=== PATIENT | female | born 1970 | race Hispanic/Latino ===

== ENCOUNTER 2018-01-01 17:09 | Emergency (ER) | payer OTHER ==
[2018-01-01] MEDS ORDERED: NA CHLORIDE 0.9% 1,000 ML ONE ×2 (17:57→18:49)
[2018-01-01] MEDS ORDERED: ONDANSETRON 4 MG/2 ML VIAL ONE (18:12)
[2018-01-01 18:16] LABS: Absolute Lymphocytes (CBC) 0.9 K/uL (0.7-4.9); Absolute Monocytes 0.3 K/uL (0.1-1.3); Absolute Neutrophil 10.6 K/uL (1.8-8.0); Basophils % 0.4 % (0-1.3); Eosinophils % 0.1 % (0-4.4); Lymphocytes % 7.2 % (15.3-44.8); MCH 29.3 pg (27.0-35.0); MCV 87.3 fL (80-100); MPV 10.1 fL (7.6-11.3); Monocytes % 2.2 % (3.3-12.3); RBC Red Blood Cell Count 4.69 M/uL (3.86-4.86)
--- NOTE | 2018-01-01 18:39 | RAD REPORT ---
EXAM DESCRIPTION: RAD - Chest Single View - 01/01/2018 6:24 pm CLINICAL HISTORY: COUGH Chest pain. COMPARISON: No comparisons FINDINGS: Portable technique limits examination quality. The lungs are grossly clear. The heart is normal in size. No displaced fractures. IMPRESSION: No acute intrathoracic process suspected.
[2018-01-01 18:49] LABS: ALT/SGPT 32 U/L (12-78); AST/SGOT 19 U/L (15-37); Albumin 3.9 g/dL (3.4-5.0); Alkaline Phosphatase 61 U/L (45-117); BUN Blood Urea Nitrogen 14 mg/dL (7-18); Bicarbonate 27 mmol/L (21-32); Bilirubin Direct < 0.1 mg/dL (0-0.2); Bilirubin Total 0.3 mg/dL (0.2-1.0); CKMB Creatine Kinase MB < 1.0 ng/mL (0.3-3.6); Creatine Phosphokinase 85 U/L (26-192); Glucose Level 123 mg/dL (74-106); Lipase 105 U/L (73-393); Magnesium 1.9 mg/dL (1.8-2.4); NT PRO-BNP 37 pg/mL (<125); Potassium 3.6 mmol/L (3.5-5.1); Protein, Total 7.9 g/dL (6.4-8.2); Sodium Level 136 mmol/L (136-145)
[2018-01-01] MEDS ORDERED: MECLIZINE HCL 12.5 MG TAB ONE (18:49)
[2018-01-01] MEDS ORDERED: FAMOTIDINE 20 MG/2 ML VIAL IV ONE (18:49)
--- NOTE | 2018-01-01 19:07 | EDPHYS ---
Physician Documentation [facility] Name: Delia Albright Age: 47 yrs Sex: Female : 1970 Arrival Date: 01/01/2018 Time: 17:13 Bed 25 Private MD: None, None ED Physician Kwadwo Liriano HPI: 01/01 18:35 This 47 yrs old Female presents to ER via Ambulatory with complaints of stalin Weakness, Nausea/Vomiting/Diarrhea. Historical: - Allergies: 17:26 PENICILLINS; ss - Home Meds: 17:26 None [Active]; ss - PMHx: 17:26 None; ss - PSHx: 17:26 Knee surgery; ss - Immunization history:: Adult Immunizations up to date. - Social history:: Smoking status: Patient/guardian denies using tobacco. - Ebola Screening: : Patient denies exposure to infectious person Patient denies travel to an Ebola-affected area in the 21 days before illness onset. ROS: 18:35 Constitutional: Negative for fever, chills, and weight loss, Eyes: Negative for injury, stalin pain, redness, and discharge, ENT: Negative for injury, pain, and discharge, Neck: Negative for injury, pain, and swelling, Cardiovascular: Negative for chest pain, palpitations, and edema, Respiratory: Negative for shortness of breath, cough, wheezing, and pleuritic chest pain, Back: Negative for injury and pain, : Negative for injury, bleeding, discharge, and swelling, MS/Extremity: Negative for injury and deformity, Skin: Negative for injury, rash, and discoloration, Psych: Negative for depression, anxiety, suicide ideation, homicidal ideation, and hallucinations, Allergy/Immunology: Negative for hives, rash, and allergies, Endocrine: Negative for neck swelling, polydipsia, polyuria, polyphagia, and marked weight changes, Hematologic/Lymphatic: Negative for swollen nodes, abnormal bleeding, and unusual bruising. 18:35 Abdomen/GI: Positive for nausea and vomiting, diarrhea. 18:35 Neuro: Positive for dizziness, weakness. Exam: 18:35 Constitutional: This is a well developed, well nourished patient who is awake, alert, stalin and in no acute distress. Head/Face: Normocephalic, atraumatic. Eyes: Pupils equal round and reactive to light, extra-ocular motions intact. Lids and lashes normal. Conjunctiva and sclera are non-icteric and not injected. Cornea within normal limits. Periorbital areas with no swelling, redness, or edema. ENT: Nares patent. No nasal discharge, no septal abnormalities noted. Tympanic membranes are normal and external auditory canals are clear. Oropharynx with no redness, swelling, or masses, exudates, or evidence of obstruction, uvula midline. Mucous membranes moist. Neck: Trachea midline, no thyromegaly or masses palpated, and no cervical lymphadenopathy. Supple, full range of motion without nuchal rigidity, or vertebral point tenderness. No Meningismus. Chest/axilla: Normal chest wall appearance and motion. Nontender with no deformity. No lesions are appreciated. Cardiovascular: Regular rate and rhythm with a normal S1 and S2. No gallops, murmurs, or rubs. Normal PMI, no JVD. No pulse deficits. Respiratory: Lungs have equal breath sounds bilaterally, clear to auscultation and percussion. No rales, rhonchi or wheezes noted. No increased work of breathing, no retractions or nasal flaring. Back: No spinal tenderness. No costovertebral tenderness. Full range of motion. Female : Normal external genitalia. Skin: Warm, dry with normal turgor. Normal color with no rashes, no lesions, and no evidence of cellulitis. MS/ Extremity: Pulses equal, no cyanosis. Neurovascular intact. Full, normal range of motion. Neuro: Awake and alert, GCS 15, oriented to person, place, time, and situation. Cranial nerves II-XII grossly intact. Motor strength 5/5 in all extremities. Sensory grossly intact. Cerebellar exam normal. Normal gait. Psych: Awake, alert, with orientation to person, place and time. Behavior, mood, and affect are within normal limits. 18:35 Abdomen/GI: Inspection: abdomen appears normal, Bowel sounds: normal, Palpation: nontender, Liver: no appreciated palpable abnormalities, Hernia: not appreciated. 19:06 Neuro: Orientation: is normal, appropriate for stated age, no acute changes, Mentation: stalin is normal, appropriate for stated age, no acute changes, Memory: is normal, appropriate for stated age, no acute changes, Cranial nerves: grossly normal, is grossly normal based on the patient's age, no acute changes, Cerebellar function: is grossly normal, is grossly normal based on the patient's age, no acute changes, Motor: is grossly normal based on the patient's age, no acute changes, moves all fours, Sensation: no obvious gross deficits, appropriate no acute changes, Gait: is steady, appropriate for age, Deep tendon reflexes are 2+ (normal) in the bilateral brachioradialis, bicep, tricep and patellar and Achilles tendons, Babinski testing is normal, seizure activity, is not displayed by the patient. Vital Signs: 17:26 BP 138 / 86; Pulse 75; Resp 17; Pulse Ox 99% on R/A; Height 5 ft. 2 in. (157.48 cm); ss Pain 0/10; 17:30 Temp 97.7(TE); ss 18:25 BP 109 / 78; Pulse 89; Resp 16; Pulse Ox 100% on R/A; hb 19:17 BP 105 / 78; Pulse 76; Resp 18; Temp 98.5; Pulse Ox 99% on R/A; aj MDM: 17:28 Patient medically screened. [facility] 18:37 Data reviewed: vital signs, nurses notes, lab test result(s), EKG, radiologic studies, [facility] plain films. 01/01 17:41 Order name: Basic Metabolic Panel; Complete Time: 19:06 [facility] 01/01 17:41 Order name: CBC with Diff [facility] 01/01 17:41 Order name: Ckmb; Complete Time: 19:06 [facility] 01/01 17:41 Order name: CPK; Complete Time: 19:06 [facility] 01/01 17:41 Order name: LFT's; Complete Time: 19:06 [facility] 01/01 17:41 Order name: Magnesium; Complete Time: 19:06 [facility] 01/01 17:41 Order name: NT PRO-BNP; Complete Time: 19:06 [facility] 01/01 17:41 Order name: PT-INR [facility] 01/01 17:41 Order name: Ptt, Activated [facility] 01/01 17:41 Order name: Troponin (emerg Dept Use Only); Complete Time: 19:06 [facility] 01/01 17:41 Order name: Lipase; Complete Time: 19:06 [facility] 01/01 17:41 Order name: Urine Test (obtain specimen); Complete Time: 18:55 [facility] 01/01 17:41 Order name: XRAY Chest (1 view); Complete Time: 19:06 [facility] 01/01 17:41 Order name: EKG; Complete Time: 17:42 [facility] 01/01 17:41 Order name: Cardiac monitoring; Complete Time: 18:14 [facility] 01/01 17:41 Order name: EKG - Nurse/Tech; Complete Time: 18:14 [facility] 01/01 17:41 Order name: IV Saline Lock; Complete Time: 18:14 [facility] 01/01 17:41 Order name: Labs collected and sent; Complete Time: 18:14 [facility] 01/01 17:41 Order name: O2 Per Protocol; Complete Time: 18:14 [facility] 01/01 18:48 Order name: Urine Dipstick--Ancillary (enter results) 01/01 18:48 Order name: Urine --Ancillary (enter results) 01/01 17:41 Order name: O2 Sat Monitoring; Complete Time: 18:14 [facility] 01/01 17:41 Order name: Urine Dipstick-Ancillary (obtain specimen); Complete Time: 19:11 [facility] 01/01 18:41 Order name: Labs - recollect needed; Complete Time: 19:08 bd Administered Medications: 18:13 Drug: NS 0.9% 1000 ml Route: IV; Rate: 1 bolus; Site: left antecubital; hb 19:21 Follow up: Response: No adverse reaction; IV Status: Order to discontinue infusion; IV aj Intake: 100ml 18:13 Drug: Zofran 4 mg Route: IVP; Site: left antecubital; hb 18:54 Follow up: Response: No adverse reaction hb 18:54 Drug: Meclizine 50 mg Route: PO; hb 19:21 Follow up: Response: No adverse reaction aj 18:54 Drug: NS 0.9% 1000 ml Route: IV; Rate: 1 bolus; Site: left antecubital; hb 19:20 Follow up: Response: No adverse reaction; IV Status: Completed infusion; IV Intake: aj 1000ml 18:54 Drug: Pepcid 20 mg Route: IVP; Site: left antecubital; hb 19:20 Follow up: Response: No adverse reaction Point of Care Testing: Blood Glucose: 17:36 Blood Glucose: 119 mg/dL; ss Ranges: Critical Glucose Levels:Adult <50 mg/dl or >400 mg/dl <40 mg/dl or >180 mg/dl Disposition: 01/01/18 19:07 Discharged to Home. Impression: Vomiting, Diarrhea, unspecified, Vertiginous syndromes in diseases classified elsewhere, unspecified ear, Weakness. - Condition is Stable. - Discharge Instructions: Food Choices to Help Relieve Diarrhea, Adult, Diarrhea, Nausea and Vomiting, Vertigo, Weakness, Nausea and Vomiting, Xtzv-[id number]-Nmkz, Diarrhea, Afam-lf-Bmsh, Vertigo, Essj-ts-Wcsl, Weakness, Ulma-wv-Mfle. - Prescriptions for Meclizine 25 mg Oral Tablet - take 1 tablet by ORAL route every 8 hours As needed; 30 tablet. Pepcid 20 mg Oral Tablet - take 1 tablet by ORAL route every 12 hours for 10 days; 20 tablet. Zofran 4 mg Oral Tablet - take 1 tablet by ORAL route every 12 hours As needed; 20 tablet. - Medication Reconciliation Form, Thank You Letter, Antibiotic Education, Prescription Opioid Use form. - Follow up: Private Physician; When: 2 - 3 days; Reason: Recheck today's complaints, Continuance of care, Re-evaluation by your physician. - Problem is new. - Symptoms have improved. Signatures: Dispatcher [employer] [facility] Kassie Douglass Amanda, AARTI RN Kwadwo Jimenez MD MD cha Smirch, Shelby, RN RN ss Baxter, Heather, RN RN Corrections: (The following items were deleted from the chart) 17:43 17:42 Occult Blood+PA.LAB.BRZ ordered. [facility] EDVA 19:22 19:07 01/01/2018 19:07 Discharged to Home. Impression: Vomiting; Diarrhea, unspecified; aj Vertiginous syndromes in diseases classified elsewhere, unspecified ear; Weakness. Condition is Stable. Discharge Instructions: Food Choices to Help Relieve Diarrhea, Adult, Diarrhea, Nausea and Vomiting, Vertigo, Weakness, Nausea and Vomiting, Ssfr-fn-Vucg, Diarrhea, Bprv-zo-Rtrs, Vertigo, Jhkd-jz-Axug, Weakness, Khbf-cy-Jwdn. Prescriptions for Meclizine 25 mg Oral Tablet - take 1 tablet by ORAL route every 8 hours As needed; 30 tablet, Pepcid 20 mg Oral Tablet - take 1 tablet by ORAL route every 12 hours for 10 days; 20 tablet, Zofran 4 mg Oral Tablet - take 1 tablet by ORAL route every 12 hours As needed; 20 tablet. and Forms are Medication Reconciliation Form, Thank You Letter, Antibiotic Education, Prescription Opioid Use. Follow up: Private Physician; When: 2 - 3 days; Reason: Recheck today's complaints, Continuance of care, Re-evaluation by your physician. Problem is new. Symptoms have improved. stalin
--- NOTE | 2018-01-01 19:07 | ER ---
Nurse's Notes [facility] Name: Delia Albright Age: 47 yrs Sex: Female : 1970 Arrival Date: 01/01/2018 Time: 17:13 Bed 25 Private MD: None, None Diagnosis: Vomiting;Diarrhea, unspecified;Vertiginous syndromes in diseases classified elsewhere, unspecified ear;Weakness Presentation: 01/01 17:24 Presenting complaint: Patient states: dizziness, nausea, vomiting x1, diarrhea x2, ss chills that began 5.5 hours ago. Pt reports she feels as if the room is spinning when she moves her head. Transition of care: patient was not received from another setting of care. Onset of symptoms was January 01, 2018 at 12:00. Risk Assessment: Do you want to hurt yourself or someone else? Patient reports no desire to harm self or others. Initial Sepsis Screen: Does the patient meet any 2 criteria? No. Patient's initial sepsis screen is negative. Does the patient have a suspected source of infection? No. Patient's initial sepsis screen is negative. Care prior to arrival: None. 17:24 Method Of Arrival: Ambulatory ss 17:24 Acuity: JELANI 3 ss Historical: - Allergies: 17:26 PENICILLINS; ss - Home Meds: 17:26 None [Active]; ss - PMHx: 17:26 None; ss - PSHx: 17:26 Knee surgery; ss - Immunization history:: Adult Immunizations up to date. - Social history:: Smoking status: Patient/guardian denies using tobacco. - Ebola Screening: : Patient denies exposure to infectious person Patient denies travel to an Ebola-affected area in the 21 days before illness onset. Screenin:14 Abuse screen: Denies threats or abuse. Denies injuries from another. Nutritional hb screening: No deficits noted. Tuberculosis screening: No symptoms or risk factors identified. Fall Risk None identified. Assessment: 17:30 General: Appears in no apparent distress. Behavior is calm, cooperative. Pain: Denies hb pain. Neuro: Level of Consciousness is awake, alert, obeys commands, Oriented to person, place, time, situation. Cardiovascular: Heart tones S1 S2 present Capillary refill < 3 seconds Patient's skin is warm and dry. Respiratory: Airway is patent Trachea midline Respiratory effort is even, unlabored, Respiratory pattern is regular, symmetrical, Breath sounds are clear bilaterally. GI: Abdomen is non-distended, Bowel sounds present X 4 quads. Abd is soft and non tender X 4 quads. Reports diarrhea, nausea, vomiting. : No signs and/or symptoms were reported regarding the genitourinary system. EENT: No signs and/or symptoms were reported regarding the EENT system. Derm: No signs and/or symptoms reported regarding the dermatologic system. Skin is intact, is healthy with good turgor, Skin is pink, warm \T\ dry. Musculoskeletal: No signs and/or symptoms reported regarding the musculoskeletal system. 18:25 Reassessment: Patient appears in no apparent distress at this time. No changes from hb previously documented assessment. Patient and/or family updated on plan of care and expected duration. Pain level reassessed. Patient is alert, oriented x 3, equal unlabored respirations, skin warm/dry/pink. Vital Signs: 17:26 BP 138 / 86; Pulse 75; Resp 17; Pulse Ox 99% on R/A; Height 5 ft. 2 in. (157.48 cm); ss Pain 0/10; 17:30 Temp 97.7(TE); ss 18:25 BP 109 / 78; Pulse 89; Resp 16; Pulse Ox 100% on R/A; hb 19:17 BP 105 / 78; Pulse 76; Resp 18; Temp 98.5; Pulse Ox 99% on R/A; aj ED Course: 17:13 Patient arrived in ED. sb2 17:13 None, None is Private Physician. sb2 17:21 Kay Phillips, RN is Primary Nurse. hb 17:25 Triage completed. ss 17:26 Arm band placed on right wrist. ss 17:28 Kwadwo Liriano MD is Attending Physician. stalin 17:36 Inserted saline lock: 20 gauge in left antecubital area, using aseptic technique. Blood ss collected. Patient maintains SpO2 saturation greater than 95% on room air. 17:45 Patient has correct armband on for positive identification. Placed in gown. Bed in low hb position. Call light in reach. Side rails up X 1. 17:58 EKG done, by loader technician. reviewed by Kwadwo Liriano MD. sm3 18:23 X-ray completed. Portable x-ray completed in exam room. Patient tolerated procedure kc2 well. 18:24 XRAY Chest (1 view) In Process Unspecified. EDMS 19:17 No provider procedures requiring assistance completed. IV discontinued, bleeding aj controlled, No redness/swelling at site. Pressure dressing applied. Administered Medications: 18:13 Drug: NS 0.9% 1000 ml Route: IV; Rate: 1 bolus; Site: left antecubital; hb 19:21 Follow up: Response: No adverse reaction; IV Status: Order to discontinue infusion; IV aj Intake: 100ml 18:13 Drug: Zofran 4 mg Route: IVP; Site: left antecubital; hb 18:54 Follow up: Response: No adverse reaction hb 18:54 Drug: Meclizine 50 mg Route: PO; hb 19:21 Follow up: Response: No adverse reaction aj 18:54 Drug: NS 0.9% 1000 ml Route: IV; Rate: 1 bolus; Site: left antecubital; hb 19:20 Follow up: Response: No adverse reaction; IV Status: Completed infusion; IV Intake: aj 1000ml 18:54 Drug: Pepcid 20 mg Route: IVP; Site: left antecubital; hb 19:20 Follow up: Response: No adverse reaction Point of Care Testing: Blood Glucose: 17:36 Blood Glucose: 119 mg/dL; ss Ranges: Intake: 19:20 IV: 1000ml; Total: 1000ml. aj 19:21 IV: 100ml; Total: 1100ml. aj Outcome: 19:07 Discharge ordered by . stalin 19:17 Discharged to home ambulatory, with family. aj 19:17 Condition: good 19:17 Discharge instructions given to patient, Instructed on discharge instructions, follow up and referral plans. medication usage, Demonstrated understanding of instructions, follow-up care, medications, Prescriptions given X 3. 19:22 Patient left the ED. aj Signatures: Dispatcher [employer] EDJulienne Cordova RN RN aj Anderson, Corey, MD MD cha Smirch, Shelby, RN RN Kay Phillips RN RN hb Carr, Kelsie kc2 Kalpana Souza sb2 Rowan Ambriz 3
[2018-01-01 19:45] LABS: Protime INR 1.01
[2018-01-01 20:32] LABS: Blood Morphology Comment NOT SEEN (NOT SEEN); Platelet Estimate ADEQ
--- NOTE | 2018-01-01 20:52 | EKG ---
Test Date: 2018-01-01 Test Time: 17:52:14 Switcher: FREDI MEASUREMENT RESULTS: Intervals: Rate: 70 LA: 170 QRSD: 90 QT: 422 QTc: 455 [place]: P: 31 LA: 170 QRS: 7 T: 35 INTERPRETIVE STATEMENTS: Normal sinus rhythm Normal ECG No previous ECG available for comparison Electronically Signed On 01-01-18 20:51:37 CDT by Kayden Vinosn
[2018-01-01 22:17] LABS: Urine Blood 2+ (NEG); Urine Glucose NEGATIVE (NEG); Urine Protein 2+ (NEG); Urine pH 8.5 (5.0-7.0)
== END 2018-01-01 19:22 | disposition home or self-care (01) ==
LOC: ER 17:09
DX: R11.10 Vomiting, unspecified (principal); R19.7 Diarrhea, unspecified; H82.9 Vertiginous syndromes in diseases classified elsewhere, unspecified ear; R53.1 Weakness; Z88.0 Allergy status to penicillin
CPT/HCPCS: 36415; 71045; 80048; 80076; 81003; 81025; 82550; 82553; 82962; 83690; 83735; 83880; 84484; 85025; 85610; 85730; 93005; 96361; 96374; 96375; 99284; J2405; J7030

== ENCOUNTER 2020-01-15 09:33 | Emergency (ER) | payer OTHER ==
--- OUTSIDE RECORDS SUMMARY | 2020-01-15 10:03 | XMS REPORT | Clinical Summary ---
:1970 Author Organization [facility] Address [address] [place] [address] Care Team Providers Name Role Phone Asked, Pcp Primary Care Provider Unavailable Allergies Active Allergy Reactions Severity Noted Date Comments Penicillins Rash Low 08/19/2019 Medications Medication Sig Dispensed Refills Start Date End Date Status meloxicam (MOBIC) Take 1 tablet 30 tablet 11 08/29/2019 02 Active 15 mg tablet (15 mg total) 1 by mouth daily. moxifloxacin 0 08/15/2019 Discon tinued (VIGAMOX) 0.5 % 0 (The rapy ophthalmic completed ) solution clindamycin Take 1 6 capsule 0 09/09/2019 (Cleocin HCL) 300 capsule (300 0 MG capsule mg total) by mouth 3 (three) times a day for 2 days. promethazine Take 1 tablet 20 tablet 0 09/09/2019 Ex pired (PHENERGAN) 25 MG (25 mg total) 0 tablet by mouth every 6 (six) hours as needed for nausea or vomiting for up to 30 days. To begin after surgery Active Problems Problem Noted Date Loose body of right knee 09/02/2019 Overview: Added automatically from request for danna lizzie [id number] Encounters Date Type Specialty Care Team Description 12/05/2019 Travel 12/03/2019 Travel 11/28/2019 Travel 11/26/2019 Travel 11/21/2019 Travel 11/19/2019 Travel 11/14/2019 Travel 11/12/2019 Travel 11/07/2019 Travel 10/29/2019 Travel 10/21/2019 Travel 10/16/2019 Telephone Orthopedic Surgery Kerri Ramirez MA 09/26/2019 Office Visit Orthopedic Surgery Joseph Gu body of right LENNY Lee knee (Primary Dx) Ned Recinos MD 09/26/2019 Travel 09/23/2019 Telephone Orthopedic Surgery Mynor Kaitlin [place] 09/13/2019 Anesthesia Event General Surgery Jorge Lugo MD Cheema, Ivelisse, FNP 09/13/2019 Surgery General Surgery Ned Recinos, Right Ar throscopy MD of the Knee wit h Removal of Loos e Body 09/13/2019 Hospital Encounter General Surgery Ned Recinos MD 09/10/2019 Documentation Orthopedic Surgery Elza Maradiaga DME (SX 09/13/2019) 09/10/2019 Orders Only Orthopedic Surgery Elza Maradiaga Loose bod y of right knee (Primary D x) 09/09/2019 Orders Only Orthopedic Surgery Joseph Gu PA 09/02/2019 Telephone Orthopedic Surgery Alfonzo Chong MA 09/02/2019 Telephone Orthopedic Surgery Alfonzo Chong MA 09/02/2019 Transcribe Orders Orthopedic Surgery Ned Recinos, Loose body of right MD knee (Primary D x) 08/29/2019 Refill Orthopedic Surgery MynorKaitlin [place] 08/27/2019 Office Visit Orthopedic Surgery Ned Recinos, Loose body of right MD knee (Primary D x) 08/22/2019 Hospital Encounter Radiology Ned Recinos, Tear of medial MD meniscus of rig ht knee, current, unspecified tea r type, initial encounter 08/19/2019 Office Visit Orthopedic Surgery Ned Recinos, Tear of medial meniscus of right knee, current, unspecified tear type, initial encounter (Primary Dx); Chronic pain of both knees after 01/14/2019 Family History Medical History Relation Name Comments No Known Problems Father No Known Problems Mother Relation Name Status Comments Father Mother Other siblings Alive Other children Alive Social History Tobacco Use Types Packs/Day Years Used Date Never Smoker 0 0 Smokeless Tobacco: Never Used Alcohol Use Drinks/Week oz/Week Comments Not Currently Sex Assigned at Date Recorded Not on file Job Start Date Occupation Industry Not on file Not on file Not on file Travel History Travel Start Travel End No recent travel history available. Last Filed Vital Signs Vital Sign Reading Time Taken Comments Blood Pressure 108/66 09/13/2019 12:30 PM [facility] Pulse 74 09/13/2019 12:30 PM [facility] Temperature 37 C (98.6 F) 09/13/2019 11:43 AM [facility] Respiratory Rate 18 09/13/2019 12:30 PM [facility] Oxygen Saturation 97% 09/13/2019 12:15 PM [facility] Inhaled Oxygen Concentration - - Weight 75.8 kg (167 lb) 09/13/2019 8:38 AM [facility] Height 157.5 cm (5' 2") 09/13/2019 8:38 AM [facility] Body Mass Index 30.54 09/13/2019 8:38 AM [facility] Plan of Treatment Health Maintenance Due Date Last Done Comments CERVICAL CANCER SCREENING 1990 BREAST CANCER SCREENING 2019 COLONOSCOPY SCREENING 2019 SHINGLES VACCINES (#1) 2019 INFLUENZA VACCINE 02/08/2020 Procedures Procedure Name Priority Date/Time Associated Diagnosis Comme nts [place] AN ELECTIVE Routine 09/13/2019 10:02 Results f or this SUPRAGLOTTIC AIRWAY AM [facility] procedur e are in the results section. POC GLUCOSE Routine 09/13/2019 8:49 Results for this AM [facility] procedure are i n the results section. MRI KNEE WO CONTRAST Routine 08/22/2019 5:08 Tear of medial R esults for this RIGHT PM [facility] meniscus of right procedure are in knee, current, the results unspecified tear section. type, initial encounter XR KNEE 4+ VW Routine 08/19/2019 1:18 Chronic pain of both Re sults for this BILATERAL PM [facility] knees procedure are i n the results section. after 01/14/2019 Results Airway (09/13/2019 10:02 AM [facility]) Narrative Performed At Finn Lam CRNA 09/13/2019 10:02 AM Airway Date/Time: 09/13/2019 9:58 AM Performed by: Finn Lam CRNA Authorized by: Jorge Lugo MD Location: OR Urgency: Elective Difficult Airway: No Anesthesiologist: Jorge Lugo M D Resident/MACHINE VENEER REPAIRER/AA: Finn Lam CRNA Performed by: anesthesiologist and resident/MACHINE VENEER REPAIRER/A A Preoxygenated with 100% O2: Yes C-spine Precautions Maintained Throughou t: Yes Mask Ventilation: Not attempted Final Airway Type: Supraglottic airway Final LMA: Classic LMA Size: 3 Number of Attempts at Approach: 1 POC glucose (09/13/2019 8:49 AM [facility]) POC glucose 106 (H) 65 - 99 mg/dL [facility] [employer] Comment: [facility] Outside Event Sales Specialist Name: Kymberly Burns Device ID: [id number] Chartable: RN Notified Specimen Performing Organization Address City/State/Zipcode Phone Number [facility] DEPARTMENT OF PATHOLOGY [address] [facility] [place] [address] AND GENOMIC MEDICINE [facility] [address] [facility] [place] [address] [facility] MRI Knee Right Wo Contrast (08/22/2019 5:08 PM [facility]) Specimen Narrative Performed At This result has an attachment that is no t available. EXAMINATION: MRI KNEE WO CONTRAST RIGHT [facility] CLINICAL HISTORY: 49 years Female S83.24 1A Other tear of medial meniscus current injury right knee initial encounter, right knee pain TECHNIQUE: Multiplanar multisequence M R imaging of the right knee was performed without contrast. COMPARISON: Bilateral knee x-ray dated 08/19/2019 FINDINGS: Cruciate ligaments: Intact. Menisci: Intact. Collateral ligaments: Intact. Bone marrow: Minimal bone marrow edema a nd subchondral cystic changes are present in the superior pole of the patella. Small osteophytes are present in the patella. Marrow signal is otherwise unremarkable. Articular cartilage: There is moderate c hondromalacia involving the superior patellar cartilage particularly the median ridge and adjacent aspects of the medial and lateral patellar facets, greater late rally. Minimal subchondral edema is present in the patella. The articular cartilage is otherwise unremark able. Effusion: There is a small joint effusion with mild sy novitis. Extensor mechanism: Intact. Soft tissues: No focal abnormality. 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 2.Small joint effusion with mild synovitis. 3.No evidence of cruciate ligament, meniscal, or colla teral ligament injury. [facility] Procedure Note Hm Interface, Radiology Results Incoming - 08/22/2019 5:21 PM [facility] EXAMINATION: MRI KNEE WO CONTRAST RIGHT CLINICAL HISTORY: 49 years Female S83.24 1A Other tear of medial meniscus current injury right knee initial encounter, right knee pain TECHNIQUE: Multiplanar multisequence MR imaging of the right knee was performed without contrast. COMPARISON: Bilateral knee x-ray dated 08/19/2019 FINDINGS: Cruciate ligaments: Intact. Menisci: Intact. Collateral ligaments: Intact. Bone marrow: Minimal bone marrow edema a nd subchondral cystic changes are present in the superior pole of the patella. Small osteophytes are present in the patella. Marrow signal is otherwise unremarkable. Articular cartilage: There is moderate c hondromalacia involving the superior patellar cartilage particularly the median ridge and adjacent aspects of the medial and lateral patellar facets, greater laterally. Minimal subchondral edema is present in the patella. The articular cartilage is othe rwise unremarkable. Effusion: There is a small joint effusio n with mild synovitis. Extensor mechanism: Intact. Soft tissues: No focal abnormality. 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 2.Small joint effusion with mild synovit is. 3.No evidence of cruciate ligament, meni scal, or collateral ligament injury. [facility] Performing Organization Address City/State/Zipcode Phone Number [facility] [employer] [address] [place] [address] XR Knee 4+ Vw Bilateral (08/19/2019 1:18 PM [facility]) Specimen Narrative Performed At This result has an attachment that is no t available. 4 views (standing AP/PA, lateral and Merchants) of the bilateral knee(s) RADIANT reveal no evidence of fracture, dislocation or any oth er acute or chronic osseous abnormalities. Performing Organization Address City/State/Zipcode Phone Number [facility] [employer] [address] [place] [address] after 01/14/2019 Advance Directives For more information, please contact: [phone] Type Date Recorded Patient Project Coordinator Explanati on Advance Directives, Living Will 09/13/2019 6:59 AM and Medical Power of Manager Pmo
--- OUTSIDE RECORDS SUMMARY | 2020-01-15 10:04 | XMS REPORT | Continuity of Care Document ---
:1970 Author Organization [facility] t Address [address] [place] [address] [place] [address] Care Team Providers Name Role Phone Asked, Pcp Primary Care Physician Unavailable MAFFET Attending Clinician Unavailable James PERKINS Attending Clinician Unavailable Jesus Cheek Attending Clinician Mynor PERKINS Attending Clinician Unavailable Brittney SALGADO, N. Attending Clinician Moon HAWK Attending Clinician Ashwini Attending Clinician Unavailable Castillo PERKINS Attending Clinician Unavailable MAFFET Admitting Clinician Unavailable Payers Payer Name Policy Type Policy Number Effective Date Expiration Date Azar santiago CIG[employer] OPEN xxxxxxxxxxx 2012 [facility] ACCESS/NETWORKxx 00:00:00 Methodis t [id number]/30/2 012-PresentHMO Problems Condition Condition Condition Status Onset Resolution Last Treating Co mments Source Name Details Category Date Date Treatment Clinician Date Loose body Loose body Disease Active Overview : [facility] of right of right 24 Added Method i knee knee 00:00: automatic st 00 ally from request for surgery [id number] Allergies, Adverse Reactions, Alerts Allergy Allergy Status Severity Reaction(s) Onset Inactive Treating Comm ents Source Name Type Date Date Clinician Penicill Propensi Active Rash [place] ins ty to 2-10 [facility] adverse 00:00: st reaction 00 s to drug Family History Family Member Diagnosis Comments Start Date Stop Date Source Natural father No Known Problems Traci ston [facility] Natural mother No Known Problems Traci stoalissa [facility] Social History Social Habit Start Date Stop Date Quantity Comments Source Sex Assigned At [facility] Alcohol intake 2019-09-16 2019-09-16 Ex-drinker [facility] 00:00:00 00:00:00 (finding) Smoking Status Start Date Stop Date Source Never smoker Kleber Ojeda t Medications Ordered Filled Start Stop Current Ordering Indication Dosage Frequency Signature Comments Components Source Medication Medication Date Date Medication? Clinician (SIG) Name Name promethazin No 25mg Q6H Take 1 Traci ston e 09-08 tablet (25 [facility] (PHENERGAN) 00:00: 23:59 mg total) st 25 MG 00 :00 by mouth tablet every 6 (six) hours as needed for nausea or vomiting for up to 30 days. To begin after surgery clindamycin No 300mg [id number] Take 1 Shahid (Cleocin 09-08 [id number] capsule M ethodi HCL) 300 MG 00:00: 23:59 3D ([address] capsule 00 :00 total) by mouth 3 (three) times a day for 2 days. meloxicam No 15mg QD Take 1 [place] (MOBIC) 15 08-29 tablet (15 Me thodi mg tablet 00:00: 23:59 mg total) st 00 :00 by mouth daily. moxifloxaci [place] (VIGAMOX) 08-15 [facility] 0.5 % 00:00: 00:00 st ophthalmic 00 :00 solution Vital Signs Vital Name Observation Time Observation Value Comments Source Systolic blood 2019-09-13 12:30:00 108 mm[Hg] [place] [facility] pressure Diastolic blood 2019-09-13 12:30:00 66 mm[Hg] [place] [facility] pressure Heart rate 2019-09-13 12:30:00 74 /min Kleber Kimble Respiratory rate 2019-09-13 12:30:00 18 /min Nilsa Kimble Oxygen saturation in 2019-09-13 12:15:00 97 /min Kleber Kimble Arterial blood by Pulse oximetry Body temperature 2019-09-13 11:43:00 37 Aileen [place] Kimble Body height 2019-09-13 08:38:00 157.5 cm Kleber Kimble Body weight 2019-09-13 08:38:00 75.751 kg Kleber Kimble BMI 2019-09-13 08:38:00 30.54 kg/m2 Kleber Kimble Procedures Procedure Date / Time Performed Performing Clinician Sourc e [place] AN ELECTIVE 2019-09-13 10:02:11 GenaroFinn reardon Kleber Escobar odteddy SUPRAGLOTTIC AIRWAY POC GLUCOSE 2019-09-13 08:49:00 Bridget Recinos MRI KNEE WO CONTRAST 2019-08-22 17:08:47 Bridget Recinos RIGHT XR KNEE 4+ VW BILATERAL 2019-08-19 13:18:11 Bridget Recinos Plan of Care Planned Activity Planned Date Details Comments Source Future Scheduled 2020-02-08 INFLUENZA VACCINE [place] [facility] Test 00:00:00 [code = INFLUENZA VACCINE] Future Scheduled 2019 BREAST CANCER [facility] Test 00:00:00 SCREENING [code = BREAST CANCER SCREENING] Future Scheduled 2019 COLONOSCOPY SCREENING [place] [facility] Test 00:00:00 [code = COLONOSCOPY SCREENING] Future Scheduled 2019 SHINGLES VACCINES [place] [facility] Test 00:00:00 (#1) [code = SHINGLES VACCINES (#1)] Future Scheduled 1990 Screening for [facility] Test 00:00:00 malignant neoplasm of cervix (procedure) [code = 458344812] Encounters Start End Encounter Admission Attending Care Care Encounter Source Date/Time Date/Time Type Type Clinicians Facility Department ID 2019-12-05 2019-12-05 Outpatient MAFFET, [facility] [id number] [place] 00:00:00 00:00:00 BRIDGET [address] 2019-12-03 2019-12-03 Outpatient MAFFET, [facility] [id number] [address] [place] [address] 00:00:00 00:00:00 BRIDGET [address] 2019-11-28 2019-11-28 Outpatient MAFFET, [facility] [id number] [place] 00:00:00 00:00:00 BRIDGET [address] 2019-11-26 2019-11-26 Outpatient MAFFET, [facility] [id number] [place] 00:00:00 00:00:00 BRIDGET [address] 2019-11-19 2019-11-19 Outpatient MAFFET, [facility] [id number] [place] 00:00:00 00:00:00 BRIDGET [address] 2019-11-14 2019-11-14 Outpatient MAFFET, [facility] [id number] [place] 00:00:00 00:00:00 BRIDGET [address] 2019-11-12 2019-11-12 Outpatient MAFFET, [facility] [id number] [place] 00:00:00 00:00:00 BRIDGET [address] 2019-11-07 2019-11-07 Outpatient MAFFET, [facility] [id number] [place] 00:00:00 00:00:00 BRIDGET [address] 2019-10-29 2019-10-29 Outpatient MAFFET, [facility] [id number] [place] 00:00:00 00:00:00 BRIDGET [address] 2019-10-22 2019-10-22 Outpatient MAFFET, [facility] [id number] [place] 00:00:00 00:00:00 BRIDGET [address] 2019-10-21 2019-10-21 Outpatient MAFFET, [facility] [id number] [place] 00:00:00 00:00:00 BRIDGET [address] 2019-09-26 2019-09-26 Outpatient PELUSE, [facility] [id number] [place] 00:00:00 00:00:00 YARSANISM [address] 2019-09-13 2019-09-13 Outpatient MAFFET, [facility] [id number] [place] 00:00:00 00:00:00 BRIDGET [address] 2019-08-22 2019-08-22 Outpatient MAFFET, [facility] [id number] [place] 00:00:00 00:00:00 BRIDGET [address] Results Test Description Test Time Test Comments Results Result [facility] e Comments Airway Finn Lam CRNA [place] 6 09/13/2019 10:02 [facility] 10:02:11 AMAirwayDate/Time: 09/13/2019 9:58 AMPerformed by: Finn Lam CRNAAuthorized by: Jorge Lugo MD Location: ORUrgency: ElectiveDifficult Airway: No Anesthesiologist: Jorge Lugo MDResident/MATERIALS BRANCH CHIEF/AA: Finn Lam CRNAPerformed by: anesthesiologist and resident/MATERIALS BRANCH CHIEF/Brianne genated with 100% O2: Yes C-spine Precautions Maintained Throughout: Yes Mask Ventilation: Not attemptedFinal Airway Type: Supraglottic airwayFinal LMA: ClassicLMA Size: 3Number of Attempts at Approach: 1 POC glucose 2019-09-13 08:51:56 Test Item Value Reference Range Interpretation Comme nts POC glucose (test code = 106 mg/dL 65-99 H Ope rator Name: Kymberly [id number]) LaurenDevice ID : [id number] able: RN Notified Lab Interpretation (test code = Abnormal 35449-2) [facility] K[facility] Right Wo [id number] 17:18:42Hm Interface, Radiology Results 08/22/2019 5:21 PM CSTEXAMINATION: MRI KNEE WO CONTRASTRIGHTCLINICAL HISTORY: 49 years Female S83.241A Other tear of medial meniscus current injury rightknee initial encounter, right knee painTECHNIQUE: Multiplanar multisequence MR imaging of the right knee was performed without contrast.COMPARISON: Bilateral knee x-ray dated 08/19/2019FINDINGS:Cruciate ligaments: Intact.Menisci: Intact.Collateral ligaments: Intact.Bone marrow: Minimal bone marrow edema and subchondral cystic changes are present in the superior pole of the patella. Small osteophytes are present in the patella. Marrow signal is otherwise unremarkable.Articular cartilage: There is moderate chondromalacia involving the superior patellar cartilage particularly the median ridge and adjacent aspects of the medial and lateral patellar facets, greater laterally. Minimal subchondral edema is present in the patella. The articular cartilage is otherwise unremarkable.Effusion: There is a small joint effusion with mild synovitis.Extensor mechanism: Intact.Soft tissues: No focal abnormality.IMPRESSION:1.Degenerative disease patellofemoral joint with moderate chondromalacia involving the superior aspect of the patella involving the median ridge and adjacent aspects of the medial and lateral patellar facets, greater laterally.2.Small joint effusion with mild synovitis.3.No evidence of cruciate ligament, meniscal, or collateral ligament injury.[id number] Kimble
--- NOTE | 2020-01-15 11:55 | EDPHYS ---
Physician Documentation [facility] Name: Delia Albright Age: 50 yrs Sex: Female : 1970 Arrival Date: 01/15/2020 Time: 09:35 Bed 3 Private MD: ED Physician Arnold Blue HPI: 01/14 11:47 This 50 yrs old Female presents to ER via Ambulatory with complaints of kdr Dizziness, Nausea. 11:47 The patient presents with dizziness, feeling off balance, sense of spinning, vertigo. kdr Onset: The symptoms/episode began/occurred gradually, 3 day(s) ago. Context: occurred at home, occurred while the patient was at rest, just prior to the episode the patient experienced no apparent symptoms. Modifying factors: The symptoms are alleviated by closing eyes, holding head still, the symptoms are aggravated by movement of head, standing up, changing position. Associated signs and symptoms: Pertinent positives: nausea. Severity of symptoms: At their worst the symptoms were mild in the emergency department the symptoms are unchanged. The patient has experienced a previous episode, approximately 2 years ago. The patient has not recently seen a physician. Historical: - Allergies: 09:51 PENICILLINS; ss - Home Meds: 09:51 None [Active]; ss - PMHx: 09:51 Vertigo; ss - PSHx: 09:51 Knee surgery; ss - Immunization history:: Adult Immunizations up to date. - Social history:: Smoking status: Patient denies any tobacco usage or history of. ROS: 11:47 Constitutional: Negative for fever, chills, and weight loss, Eyes: Negative for injury, kdr pain, redness, and discharge, ENT: Negative for injury, pain, and discharge, Neck: Negative for injury, pain, and swelling, Cardiovascular: Negative for chest pain, palpitations, and edema, Respiratory: Negative for shortness of breath, cough, wheezing, and pleuritic chest pain, Abdomen/GI: Negative for abdominal pain, nausea, vomiting, diarrhea, and constipation, Back: Negative for injury and pain, : Negative for injury, bleeding, discharge, and swelling, MS/Extremity: Negative for injury and deformity, Skin: Negative for injury, rash, and discoloration, Psych: Negative for depression, anxiety, suicide ideation, homicidal ideation, and hallucinations, Allergy/Immunology: Negative for hives, rash, and allergies, Endocrine: Negative for neck swelling, polydipsia, polyuria, polyphagia, and marked weight changes, Hematologic/Lymphatic: Negative for swollen nodes, abnormal bleeding, and unusual bruising. 11:47 Neuro: Positive for dizziness, Negative for altered mental status, gait disturbance, headache, hearing loss, loss of consciousness, numbness, seizure activity, speech changes, syncope, near syncope, tingling, tinnitus, tremor, visual changes, weakness. Exam: 11:47 Constitutional: This is a well developed, well nourished patient who is awake, alert, kdr and in no acute distress. Head/Face: Normocephalic, atraumatic. Eyes: Pupils equal round and reactive to light, extra-ocular motions intact. Lids and lashes normal. Conjunctiva and sclera are non-icteric and not injected. Cornea within normal limits. Periorbital areas with no swelling, redness, or edema. Neck: Trachea midline, no thyromegaly or masses palpated, and no cervical lymphadenopathy. Supple, full range of motion without nuchal rigidity, or vertebral point tenderness. No Meningismus. Chest/axilla: Normal chest wall appearance and motion. Nontender with no deformity. No lesions are appreciated. Cardiovascular: Regular rate and rhythm with a normal S1 and S2. No gallops, murmurs, or rubs. Normal PMI, no JVD. No pulse deficits. Respiratory: Lungs have equal breath sounds bilaterally, clear to auscultation and percussion. No rales, rhonchi or wheezes noted. No increased work of breathing, no retractions or nasal flaring. Abdomen/GI: Soft, non-tender, with normal bowel sounds. No distension or tympany. No guarding or rebound. No evidence of tenderness throughout. Back: No spinal tenderness. No costovertebral tenderness. Full range of motion. Skin: Warm, dry with normal turgor. Normal color with no rashes, no lesions, and no evidence of cellulitis. MS/ Extremity: Pulses equal, no cyanosis. Neurovascular intact. Full, normal range of motion. Neuro: Awake and alert, GCS 15, oriented to person, place, time, and situation. Cranial nerves II-XII grossly intact. Motor strength 5/5 in all extremities. Sensory grossly intact. Cerebellar exam normal. Normal gait. Psych: Awake, alert, with orientation to person, place and time. Behavior, mood, and affect are within normal limits. Vital Signs: 09:40 BP 120 / 87; Pulse 57; Resp 15; Temp 98.9; Pulse Ox 96% on R/A; Weight 69.85 kg; Height ss 5 ft. 2 in. (157.48 cm); Pain 0/10; 11:41 BP 128 / 84; Pulse 56; Resp 18; Pulse Ox 100% ; sv 09:40 Body Mass Index 28.17 (69.85 kg, 157.48 cm) ss MDM: 11:47 Data reviewed: vital signs, nurses notes. Counseling: I had a detailed discussion with kdr the patient and/or guardian regarding: the historical points, exam findings, and any diagnostic results supporting the discharge/admit diagnosis, the need for outpatient follow up. 11:54 Patient medically screened. kdr Administered Medications: 11:50 Drug: Meclizine 25 mg Route: PO; sv 12:05 Follow up: Response: No adverse reaction sv 11:51 Not Given (Pt doesn't have a ride home, she drove herself): Valium 5 mg PO once sv Disposition: 01/15/20 11:54 Discharged to Home. Impression: Vertiginous syndromes in diseases classified elsewhere. - Condition is Stable. - Discharge Instructions: Vertigo, [id number]. - Prescriptions for Meclizine 25 mg Oral Tablet - take 1 tablet by ORAL route every 8 hours As needed; 30 tablet. Zofran 4 mg Oral Tablet - take 1 tablet by ORAL route every 12 hours As needed; 6 tablet. - Medication Reconciliation Form, Thank You Letter form. - Follow up: Private Physician; When: 2 - 3 days; Reason: If symptoms return, Further diagnostic work-up, Recheck today's complaints, Continuance of care, Re-evaluation by your physician. - Problem is new. - Symptoms have improved. Signatures: Araceli Palacio, RN RN Arnold Blue MD MD [facility] Bertha Dukes RN RN ss Corrections: (The following items were deleted from the chart) 12:05 11:54 01/15/2020 11:54 Discharged to Home. Impression: Vertiginous syndromes in sv diseases classified elsewhere. Condition is Stable. Forms are Medication Reconciliation Form, Thank You Letter, Antibiotic Education, Prescription Opioid Use. Follow up: Private Physician; When: 2 - 3 days; Reason: If symptoms return, Further diagnostic work-up, Recheck today's complaints, Continuance of care, Re-evaluation by your physician. Problem is new. Symptoms have improved. kdr
--- NOTE | 2020-01-15 11:55 | ER ---
Nurse's Notes [facility] Name: Delia Albright Age: 50 yrs Sex: Female : 1970 Arrival Date: 01/15/2020 Time: 09:35 Bed 3 Private MD: Diagnosis: Vertiginous syndromes in diseases classified elsewhere Presentation: 01/14 09:40 Chief complaint: Patient states: Dizziness and nausea that began 2 days ago. Is worse ss when moving head or standing up too fast. Pt reports a history of vertigo and reports this feels similar and she is trying to catch it early and get the medications that worked last time because they are going out of town soon. Coronavirus screen: Proceed with normal triage. Patient denies a cough. Patient denies shortness of breath or difficulty breathing. Patient denies measured and/or subjective temperature greater than 100.4F prior to today's visit. Patient denies travel on a cruise ship or to a country the [facility] currently lists as an affected area. Patient denies contact with known and/or suspected case of COVID-19. Ebola Screen: Patient denies exposure to infectious person. Patient denies travel to an Ebola-affected area in the 21 days before illness onset. Initial Sepsis Screen: Does the patient meet any 2 criteria? No. Patient's initial sepsis screen is negative. Does the patient have a suspected source of infection? No. Patient's initial sepsis screen is negative. Risk Assessment: Do you want to hurt yourself or someone else? Patient reports no desire to harm self or others. Onset of symptoms was January 13, 2020. 09:40 Method Of Arrival: Ambulatory ss 09:40 Acuity: JELANI 3 ss Historical: - Allergies: 09:51 PENICILLINS; ss - Home Meds: 09:51 None [Active]; ss - PMHx: 09:51 Vertigo; ss - PSHx: 09:51 Knee surgery; ss - Immunization history:: Adult Immunizations up to date. - Social history:: Smoking status: Patient denies any tobacco usage or history of. Screenin:42 Abuse screen: Denies threats or abuse. Denies injuries from another. Nutritional sv screening: No deficits noted. Tuberculosis screening: No symptoms or risk factors identified. Fall Risk Assessment: 11:35 General: Appears in no apparent distress. comfortable, well groomed, well developed, sv Behavior is calm, cooperative, appropriate for age. Pain: Denies pain. Neuro: Level of Consciousness is awake, alert, obeys commands, Oriented to person, place, time, situation, Moves all extremities. Full function Gait is steady, Speech is normal, Facial symmetry appears normal, Reports dizziness. Respiratory: Airway is patent Respiratory effort is even, unlabored, Respiratory pattern is regular, symmetrical. GI: Reports nausea. Derm: Skin is pink, warm \T\ dry. Musculoskeletal: Range of motion: intact in all extremities. 12:05 Reassessment: Patient appears in no apparent distress at this time. No changes from sv previously documented assessment. Patient and/or family updated on plan of care and expected duration. Pain level reassessed. Patient is alert, oriented x 3, equal unlabored respirations, skin warm/dry/pink. Vital Signs: 09:40 BP 120 / 87; Pulse 57; Resp 15; Temp 98.9; Pulse Ox 96% on R/A; Weight 69.85 kg; Height ss 5 ft. 2 in. (157.48 cm); Pain 0/10; 11:41 BP 128 / 84; Pulse 56; Resp 18; Pulse Ox 100% ; sv 09:40 Body Mass Index 28.17 (69.85 kg, 157.48 cm) ED Course: 09:35 Patient arrived in ED. ag5 09:44 Arnold Blue MD is Attending Physician. kdr 09:50 Triage completed. ss 09:51 Arm band placed on right wrist. ss 11:31 Araceli Palacio, AARTI is Primary Nurse. sv 11:42 Patient has correct armband on for positive identification. Bed in low position. Call sv light in reach. Pulse ox on. NIBP on. Door closed. Head of bed elevated. 11:43 ED physician to see patient. sv 12:05 No provider procedures requiring assistance completed. Patient did not have IV access sv during this emergency room visit. Administered Medications: 11:50 Drug: Meclizine 25 mg Route: PO; sv 12:05 Follow up: Response: No adverse reaction sv 11:51 Not Given (Pt doesn't have a ride home, she drove herself): Valium 5 mg PO once sv Outcome: 11:54 Discharge ordered by . kdr 12:05 Discharged to home ambulatory. sv 12:05 Condition: stable 12:05 Discharge instructions given to patient, Instructed on discharge instructions, follow up and referral plans. medication usage, Demonstrated understanding of instructions, follow-up care, medications, Prescriptions given X 2. 12:05 Patient left the ED. sv Signatures: Araceli Palacio, RN Arnold Blanco MD MD kdr Smirch, Shelby, RN RN ss Gaskin, Ajare ag5
[2020-01-15] MEDS ORDERED: MECLIZINE HCL 12.5 MG TAB ONE (11:57)
[2020-01-15 12:19] VITALS: TEMP 98.9
[2020-01-15 12:23] VITALS: BP 128/84; O2SAT 100
== END 2020-01-15 12:05 | disposition home or self-care (01) ==
LOC: ER 09:33
DX: R42 Dizziness and giddiness (principal); H82.9 Vertiginous syndromes in diseases classified elsewhere, unspecified ear; Z88.0 Allergy status to penicillin
CPT/HCPCS: 99283; J8597